=== PATIENT | male | born 1955 | race Caucasian/White ===

== ENCOUNTER → 2021-05-03 15:04 | Outpatient (BNVA) | payer MEDICARE, SELFPAY | PROVIDERS: Visit Provider Family Medicine | DX: J06.9 Acute upper respiratory infection, unspecified (principal) | CPT/HCPCS: 87400; 87635 ==

== ENCOUNTER → 2021-06-04 10:17 | Outpatient (BNVA) | payer MEDICARE, SELFPAY | PROVIDERS: PCP Family Medicine; Visit Provider Family Medicine | DX: I10 Essential (primary) hypertension (principal); N52.9 Male erectile dysfunction, unspecified; G06.1 Intraspinal abscess and granuloma; B96.89 Other specified bacterial agents as the cause of diseases classified elsewhere; Z86.69 Personal history of other diseases of the nervous system and sense organs; L66.1 Lichen planopilaris; K21.9 Gastro-esophageal reflux disease without esophagitis; L02.212 Cutaneous abscess of back [any part, except buttock and flank]; Z13.21 Encounter for screening for nutritional disorder | CPT/HCPCS: 80053; 80061; 82306; 84403; 84443; 85025 ==

== ENCOUNTER → 2021-06-14 16:22 | Outpatient (BNVA) | payer MEDICARE, SELFPAY | PROVIDERS: PCP Family Medicine; Visit Provider Family Medicine | DX: R74.8 Abnormal levels of other serum enzymes (principal); Z11.59 Encounter for screening for other viral diseases; R74.01 Elevation of levels of liver transaminase levels | CPT/HCPCS: 80076; 86705; 86706; 86709; 86803; 87340 ==

== ENCOUNTER → 2021-12-23 18:29 | Outpatient (BNVA) | payer MEDICARE, MEDICAID, SELFPAY | PROVIDERS: PCP Family Medicine; Visit Provider Family Medicine | DX: Z00.00 Encounter for general adult medical examination without abnormal findings (principal); L66.1 Lichen planopilaris; I10 Essential (primary) hypertension; Z12.5 Encounter for screening for malignant neoplasm of prostate | CPT/HCPCS: 80053; 80061; 84443; 85025; G0103 ==